=== PATIENT | female | born 1985 | race Two or more races ===

== ENCOUNTER → 2025-01-09 | Outpatient (CLI) | payer BC, MEDICAID, SELFPAY ==
--- NOTE | 2025-01-09 09:00 | XR_ITS ---
Examination: Breast ultrasound, unilateral, left complete Date and time of exam: January 09, 2025 0922 hours INDICATIONS: Sharp left breast pain 6 beginning 3 months ago Technique: Real-time zendejas scale ultrasonographic imaging performed left breast including all 4 quadrants as well as nipple retroareolar and axillary region. Findings: No cystic or solid mass 14 mm axillary lymph node IMPRESSION: BI-RADS Category 2: Benign findings
--- NOTE | 2025-01-09 09:45 | XR_ITS ---
Examination: Diagnostic digital mammography, bilateral Computer aided detection 3-D breast Tomosynthesis, bilateral Date and time of exam: January 19, 2025 0932 hours INDICATIONS: Patient states left breast pain beginning 3 months ago Technique: Nonmagnified MLO, CC views of the breasts to been obtained, reconstructed from 3-D Tomosynthesis images. R2 computer aided detection program utilized for evaluation of suspicious masses and/or abnormal calcifications. 3-D Tomosynthesis images obtained. Findings: The breasts are heterogeneously dense, which may obscure small masses Benign calcifications No suspicious masses Impression: BI-RADS Category 2: Benign findings Recommend yearly follow-up mammography If breast pain persists, recommend 3-6 month follow-up bilateral breast sonography.
== END | disposition home or self-care (01) ==
PROVIDERS: Referring Provider Family Medicine; Visit Provider Family Medicine
DX: R92.323 Mammographic fibroglandular density, bilateral breasts (principal); R92.1 Mammographic calcification found on diagnostic imaging of breast
CPT/HCPCS: 76641; 77062; 77066; G0279